=== PATIENT | male | born 1985 | race African-American/Black ===

== ENCOUNTER 2024-11-02 10:22 | Emergency (ER) | payer OTHER, SELFPAY ==
[2024-11-02 10:25] VITALS: BP 150/96
[2024-11-02] MEDS: MOTRIN 400 MG PO (12:27)
[2024-11-02 12:29] VITALS: BP 131/72
[2024-11-02 13:00] VITALS: BP 136/98
[2024-11-02 14:00] VITALS: BP 133/94
--- NOTE | 2024-11-02 14:14 | ED.GENMED ---
History of Present Illness
General
Chief Complaint: Anal/Rectal Problem
Source: patient
Exam Limitations: none
Time Seen by Provider: 11/02/24 10:45
Nursing documentation reviewed up to this point in time: agreed with
History of Present Illness
History of Present Illness:
Patient presents to ED secondary to persistent rectal pain over the past 3 days, similar to when he required surgery 3 years ago. Denies fever or chills. Denies trauma. Denies inability to bowel movements. Denies abdominal pain. Denies nausea
or vomiting.
Past History
Past History
ED Past Medical History: Other (Perirectal abscess)
ED Past Surgical History: None
Social History
Tobacco: Non-smoker
Review of Systems
Review of Systems
Allergies reviewed?: Yes
All Other Systems: ROS reviewed and negative except as documented in HPI and ROS
Constitutional: Reports no symptoms; Denies fever
ABD/GI: Reports abdominal pain; Denies vomiting or diarrhea
Musculoskeletal: Reports no symptoms
Skin: Reports no symptoms
Neurological: Reports no symptoms
Phy Exam
Physical Exam
Physical Exam:
Physical Exam
General: mild painful distress, not acutely ill. afebrile
Head: nc/at. eomi
Neck: supple. normal range of motion.
Abdomen: normal bowel sounds. not tender. rectal prolapse noted, able to be reduced with gentle pressure. minimal bleeding noted
Neuro: alert and oriented x 3. no focal neurological deficits
Skin: no rash
Psychiatric: well kept. interactive and cooperative
Extremities: no edema. no calf tenderness.
Course
Orders/Labs/Results
Orders:
Orders
11/02/24 12:17
Ibuprofen [Motrin] 400 mg PO NOW STA
Vital Signs
Initial and Last Documented VS:
Initial Vital Signs
Temp Pulse Resp BP Pulse Ox
98.9 F 77 16 150/96 100
11/02/24 10:25 11/02/24 10:25 11/02/24 10:25 11/02/24 10:25 11/02/24 10:25
Last Documented Vital Signs
Temp Pulse Resp BP Pulse Ox
98.9 F 77 16 141/96 100
11/02/24 10:25 11/02/24 10:25 11/02/24 10:25 11/02/24 15:00 11/02/24 15:15
MDM/Problems Addressed
MDM/Problems Addressed:
Patient evaluated by Dr. Henley, colorectal surgery. Discussed treatment options with the patient. Patient opted for conservative outpatient management. As such, patient will be discharged home with recommendations provided by colorectal surgery.
Return precautions provided.
*Critical Care Note
Total Time (30-74mins, 75-104mins- exclusive of procedures): Not Applicable
ED Attending Note
-
Portions of this chart may have been created with voice recognition software.� Occasional wrong word or��sound alike� substitutions may have occurred due to the inherent limitations of voice recognition software.
Discharge Plan
Departure
Patient Disposition: Home (Routine Discharge)
Date of Disposition: 11/02/24
Time of Disposition: 15:08
Patient with high blood pressure during this ER visit?: Yes
Condition: Good
Discharge Problem:
Rectal prolapse
Instructions: Rectal prolapse in adults, How to Do a Sitz Bath
Prescriptions:
New
dibucaine 1 % ointment
1 applic topical TID Qty: 28 0RF
No Action
acetaminophen 325 mg Tablet
650 mg PO Q8H PRN (Reason: mild pain)
hydrocodone-acetaminophen 5-325 mg tablet
1 tab PO Q6H PRN (Reason: pain) Qty: 20 0RF
amoxicillin-pot clavulanate [Augmentin] 500-125 mg tablet
1 tab PO Q12H Qty: 20 0RF
Referrals:
Reji Henley MD [Active] -
NONE,* [Family Provider] -
Activity Restrictions/Additional Instructions:
As discussed, please follow-up with referred colorectal surgeon for further evaluation and treatment. Your prescription has been sent electronically to [facility] pharmacy in [place].
Interventions
Interventions:
*Risk Screen - Suicide Last Done: 11/02/24 10:25
*General Assessment Last Done: 11/02/24 11:18
*Neglect/Abuse Screening Last Done: 11/02/24 10:25
*ED- Fall Risk Assessment Last Done: 11/02/24 11:18
*ED COVID-19 Vaccine History Last Done: 11/02/24 11:18
*Nursing Disposition Last Done: 11/02/24 15:34
ZQ-Ggufgd-Eblpxmyjsm Assessment Last Done: 11/02/24 12:35
ED-Skin Assessment Last Done: 11/02/24 12:35
Discharge Date and Time
Discharge Date/Time: 11/02/24 15:35
Print Language: FRISIAN
--- NOTE | 2024-11-02 14:40 | CON.CRS ---
Consultation
-
Date/Time Consultation Requested: 11/02/2024, 11:30
Date/Time Consultation Performed: 11/02/2024, 14:30
Requesting Provider: Dr. Suresh Bansal
Performing Provider: Dr. Reji Henley
Reason for Consultation: rectal prolapse
Medical History
-
Chief Complaint: prolapsing tissue
History of Present Illness:
39yo male presents to [facility] complaining of prolapsing anal tissue. He states it started happening over the past few weeks but got worse over the past week. Some intermittent bleeding. Denies fevers or chills. Denies nausea or vomiting.
This has never happened before. 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 Henley back in 2021. He states he has anal pain but it is different than before. He is here today for further evaluation.
Past Medical History
Past Medical History: Other (anal abscess, elevated LFTs)
Past Surgical History: Other (I+D of perianal abscess - 2021 (Dr. Henley))
Social History
Tobacco: Non-Smoker
Alcohol: Occasional
Drug: None
Family History
Family History: Reviewed & Not Pertinent
Allergies / Home Medications
Allergy/AdvReac Type Severity Reaction Status Date / Time
No Known Allergies Allergy Verified 11/02/24 10:25
�Medication �Instructions �Recorded �Confirmed �Type
acetaminophen 325 mg tablet 650 mg PO Q8H PRN mild pain 02/05/22 02/05/22 History
amoxicillin 500 mg-potassium 1 tab PO Q12H #20 tabs 02/07/22 Rx
clavulanate 125 mg tablet
(Augmentin)
hydrocodone 5 mg-acetaminophen 325 1 tab PO Q6H PRN pain #20 tabs 02/07/22 Rx
mg tablet
Review of Systems
-
History Source: Patient
Abdomen/GI: Other (anal pain, prolapsing hemorrhoids)
A 10 point review of systems was completed, and was negative except as per HPI.
Physical Exam
Vital Signs
Temp 98.9 F 11/02/24 10:25
Pulse 77 11/02/24 10:25
Resp Rate 16 11/02/24 10:25
Blood pressure 136/98 11/02/24 13:00
SaO2 99 11/02/24 14:00
11/01/24 11/02/24 11/03/24
06:59 06:59 06:59
Actual Weight 93 kg
Lab Results / Allergies
Allergy/AdvReac Type Severity Reaction Status Date / Time
No Known Allergies Allergy Verified 11/02/24 10:25
Physical Exam
General: Well Developed, Well Nourished and No Apparent Distress
GI: Soft, Non Tender and Non Distended
Rectal: Other (prolapsing internal hemorrhoids, external hemorrhoids, painful to touch, no masses noted on exam, generalized pain, no blood noted)
Skin: Warm and Dry
Neuro: AO x 3
Psych: Calm
Data Reviewed
-
Old Records: Reviewed
Assessment / Plan
-
Assessment: 39yo male with a history of a perianal abscess, underwent an I+D in 2021, now with painful prolapsing internal and external hemorrhoids
Plan:
-Discussed surgical versus non-surgical options. Surgery would involve a traditional hemorrhoidectomy with 1-2 weeks of recovery. Patient is moving to [place] in a week and is not that interested in this option. Will manage non-operatively.
-Dibucaine ointment PRN
-Hydrocortisone cream PRN
-Ice packs as needed
-Sitz baths twice a day for a week
-Tylenol and Motrin alternating to help with pain
-He will call our office if he changes his mind on surgery or has questions. Discussed with his and father at bedside.
[2024-11-02 15:00] VITALS: BP 141/96
== END 2024-11-02 15:35 | disposition home or self-care (01) ==
LOC: EMR 10:22
PROVIDERS: EMERGENCY PHYSICIAN Emergency Medicine; OTHER PHYSICIAN Surgery
DX: K62.3 Rectal prolapse (principal); K64.8 Other hemorrhoids; K62.5 Hemorrhage of anus and rectum; R10.9 Unspecified abdominal pain; K64.4 Residual hemorrhoidal skin tags; R03.0 Elevated blood-pressure reading, without diagnosis of hypertension
CPT/HCPCS: 99283